=== PATIENT | male | born 1960 | race Caucasian/White ===

== ENCOUNTER 2019-11-10 08:58 | Inpatient (IN) | payer OTHER ==
[~2019-11-10] VITALS: Ht 170.2 cm; Wt 88.0 kg
[2019-11-10 09:50] LABS: BASOPHILS ABSOLUTE AUTO 0.04 K/mm3 (0.00-0.23); BASOPHILS PERCENT AUTO 1 % (0-2); EOSINOPHILS ABSOLUTE AUTO 0.08 K/mm3 (0.00-0.68); EOSINOPHILS PERCENT AUTO 1 % (0-6); Hematocrit 47.1 % (37.0-53.0); Hemoglobin 14.1 g/dL (13.5-17.5); IMMATURE GRAN ABSOLUTE AUTO 0.02 K/mm3 (0.00-0.10); IMMATURE GRAN PERCENT AUTO 0 % (0-1); LYMPHOCYTES ABSOLUTE AUTO 1.15 K/mm3 (0.84-5.20); LYMPHOCYTES PERCENT AUTO 14 % (21-46); MONOCYTES ABSOLUTE AUTO 0.48 K/mm3 (0.16-1.47); MONOCYTES PERCENT AUTO 6 % (4-13); Mean Corpuscular HGB 29.6 pg (26.0-34.0); Mean Corpuscular HGB Conc 29.9 g/dL (31.5-36.5); Mean Corpuscular Volume 99 fL (80-100); Mean Platelet Volume 10.2 fL (9.1-12.4); NEUTROPHILS ABSOLUTE AUTO 6.24 K/mm3 (1.96-9.15); NEUTROPHILS PERCENT AUTO 78 % (41-73); Platelet Count 284 K/mm3 (150-400); RDW Coefficient Variation 15.9 % (11.7-14.2); RDW Standard Deviation 57.7 fL (35.1-46.3); Red Blood Cell Count 4.77 M/mm3 (4.30-5.90); White Blood Cell Count 8.01 K/mm3 (4.00-11.30)
[2019-11-10 09:54] LABS: Base Excess Venous 7.2 mmol/L; Bicarbonate Venous 28.2 mmol/L (24.0-30.0); PCO2 Venous 57.6 mmHg (38-42); PO2 Venous 34.5 mmHg (38-42); pH Blood Venous 7.36 (7.34-7.37)
[2019-11-10 10:14] LABS: Alanine Aminotransfer (ALT/SGP 17 U/L (12-78); Albumin, Blood 2.7 g/dL (3.4-5.0); Albumin/Globulin Ratio 0.6 (0.8-1.8); Alk Phos 113 U/L (50-136); Anion Gap 9 mmol/L (6-16); Aspartate Aminotrans (AST/SGOT 32 U/L (12-37); Bilirubin, Total 0.8 mg/dL (0.1-1.0); Blood Urea Nitrogen 10 mg/dL (8-24); Bun/Creatinine Ratio 16.8 (12.0-20.0); CO2, Blood 25 mmol/L (21-32); Calcium, Blood 8.2 mg/dL (8.5-10.1); Chloride, Blood 105 mmol/L (98-108); Globulin, Blood 4.7 g/dL (2.2-4.0); Glomerular Filtration Rate >60 (60-); Glucose, Blood 282 mg/dL (70-99); Potassium, Blood 4.9 mmol/L (3.5-5.5); Sodium, Blood 139 mmol/L (136-145); Total Protein, Blood 7.4 g/dL (6.4-8.2); Troponin I 0.016 ng/mL (0.000-0.040)
[2019-11-10] MEDS ORDERED: BASAGLAR K100 UNIT/1 SC (12:21)
[2019-11-10] MEDS ORDERED: CARV6.25 PO (12:22)
[2019-11-10] MEDS ORDERED: SITA100T2 PO (12:22)
[2019-11-10] MEDS ORDERED: ST. JOSEPH ASPI81 M1 PO (12:22)
[2019-11-10] MEDS ORDERED: LOSARTAN POTAS100 M1 PO (12:23)
[2019-11-10] MEDS ORDERED: ISOSORBIDE MONO30 MG PO (12:30)
[2019-11-10] MEDS ORDERED: FURO40 PO (12:30)
[2019-11-10] MEDS ORDERED: Metformin HCl1000 MG PO (12:31)
--- NOTE | 2019-11-10 13:50 | NUR ---
echocardiogram completed.
--- NOTE | 2019-11-10 18:10 | NUR ---
NO ACUTE EVENTS THIS SHIFT. VSS, PATIENT ABLE TO AMBULATE INDEPENDENTLY IN ROOM. PLAN IS TO CONTINUE TO DIURESE WITH IV LASIX, PATIENT IS CREATING GOOD AMOUNT OF OUTPUT.
[2019-11-11 03:31] LABS: BASOPHILS ABSOLUTE AUTO 0.06 K/mm3 (0.00-0.23); BASOPHILS PERCENT AUTO 1 % (0-2); EOSINOPHILS PERCENT AUTO 2 % (0-6); Hematocrit 45.2 % (37.0-53.0); Hemoglobin 14.2 g/dL (13.5-17.5); IMMATURE GRAN ABSOLUTE AUTO 0.02 K/mm3 (0.00-0.10); IMMATURE GRAN PERCENT AUTO 0 % (0-1); LYMPHOCYTES ABSOLUTE AUTO 1.69 K/mm3 (0.84-5.20); LYMPHOCYTES PERCENT AUTO 18 % (21-46); MONOCYTES ABSOLUTE AUTO 0.62 K/mm3 (0.16-1.47); MONOCYTES PERCENT AUTO 7 % (4-13); Mean Corpuscular HGB 29.3 pg (26.0-34.0); Mean Corpuscular HGB Conc 31.4 g/dL (31.5-36.5); Mean Platelet Volume 9.8 fL (9.1-12.4); NEUTROPHILS ABSOLUTE AUTO 6.59 K/mm3 (1.96-9.15); NEUTROPHILS PERCENT AUTO 72 % (41-73); Platelet Count 348 K/mm3 (150-400); RDW Coefficient Variation 15.3 % (11.7-14.2); RDW Standard Deviation 52.8 fL (35.1-46.3); Red Blood Cell Count 4.85 M/mm3 (4.30-5.90); White Blood Cell Count 9.18 K/mm3 (4.00-11.30)
[2019-11-11 03:32] LABS: Mean Corpuscular Volume 93 fL (80-100)
[2019-11-11 03:46] LABS: Anion Gap 8 mmol/L (6-16); Blood Urea Nitrogen 14 mg/dL (8-24); Bun/Creatinine Ratio 17.9 (12.0-20.0); CO2, Blood 33 mmol/L (21-32); Calcium, Blood 8.3 mg/dL (8.5-10.1); Chloride, Blood 100 mmol/L (98-108); Creatinine, Blood 0.78 mg/dL (0.60-1.20); Glomerular Filtration Rate >60 (60-); Glucose, Blood 116 mg/dL (70-99); Potassium, Blood 3.1 mmol/L (3.5-5.5); Sodium, Blood 141 mmol/L (136-145)
--- NOTE | 2019-11-11 07:25 | NUR ---
END OF SHIFT SUMMARY PT AXO, VSS, SOME HTN BUT RESOLVED. FOR MAJORITY OF SHIFT, PT RESTED IN ROOM QUIETLY AND WAS CONSTANTLY GETTING UP TO BATHROOM TO VOID INTO URINAL DUE TO BEING DIURESED. 0300, PT STATES FEELING SICK, PRESENTING WITH SOME RESPIRATORY DISTRESS DESPITE SPO2 >94% ON RA. PT C/O NOT BEING ABLE TO CATCH A FULL BREATH. LUNGS HAD STARTED WITH FINE CRACKLES T/O AND PER AUSCULTATION, PRESENTED WITH LESS CRACKLES. RT CALLED AND PROVIDED TREATMENT, PT STILL SYMPTOMATIC. CBG TAKEN, 55. PT BARELY ABLE TO LIFT HEAD OFF OF PILLOW. ORDER RECEIVED FROM DR TORRES FOR 1/2 AMP D5. ADMINISTERED. CBG JOSE GUADALUPE TO 67 AND THEN >100 WITH AM LABS THAT THIS RN ASKED TO TAKE EARLY DUE TO PT PRESENTATION. PT BEING CLOSELY MONITORED BUT STATED FEELING "MUCH BETTER". 0508, CBG RETAKEN AND SHOWED 44. ORDER FOR 1 FULL AMP D5 RECEIVED AND ADMINISTERED. PT STATES FEELING MUCH BETTER. PT STILL BEING CLOSELY MONITORED. SHIFT CHANGE AT 0640, CBG RETAKEN, LOW PER PCT. DR SCHUMACHER CALLED. PT GIVEN ORANGE JUICE. REPORT GIVEN TO ONCNAGI RN. ORDERES RECEIVED FROM DR SCHUMACHER. ONCNAGI RN TO ADMINISTER NEW ORDERS.
--- NOTE | 2019-11-11 10:02 | NUR ---
pt laying in bed awake, but keeps eyes closed, responds approp. a/ox3, a bit slow to answer, lungs are clear in upper [place], crackles, course in bases, resp even and unlabord, is on r/a, no cough noted at this time, hrr, has pacer but not pacing at this time, underlying is st per monitor, see strip, 1+edema noted to b/l le, up to thighs, skin is wrinkling as it's going down, ppp+faint, cap refill <3sec, v.s. stable, afebrile, iv to left fa, near the ac, infusing k rider at this time, pt tolerating well, btx4, abd flat soft nontender, voids via urinal, skin c/w/d, ryan crump, call light in reach.
--- NOTE | 2019-11-11 10:51 | NUR ---
we will be checking glucose q1hr until noon, as he was low this am, and recieved d50 several times. last check was in the 170s. changed his insulin. call light in reach.
--- NOTE | 2019-11-11 19:02 | NUR ---
PT RESTING IN BED THIS EVENING, GETS HIMSELF UP TO THE BR, VOIDED 1800MLS FOR THE DAY. NO COMPLAINTS. CARDIOLOGY WAS IN, RECORDS WERE OBTAINED FROM [facility] IN [facility]. WILL KEEP NPO AFTER MID FOR POSSIBLE ANGIO. GLUCOSE HAS LEVELED OUT, NO FURTHER CHANGES THIS SHIFT. CALL LIGHT IN REACH.
--- NOTE | 2019-11-11 19:30 | NUR ---
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
[2019-11-12 05:02] LABS: BASOPHILS ABSOLUTE AUTO 0.05 K/mm3 (0.00-0.23); BASOPHILS PERCENT AUTO 1 % (0-2); EOSINOPHILS ABSOLUTE AUTO 0.19 K/mm3 (0.00-0.68); EOSINOPHILS PERCENT AUTO 2 % (0-6); Hemoglobin 13.8 g/dL (13.5-17.5); IMMATURE GRAN ABSOLUTE AUTO 0.02 K/mm3 (0.00-0.10); IMMATURE GRAN PERCENT AUTO 0 % (0-1); LYMPHOCYTES ABSOLUTE AUTO 1.27 K/mm3 (0.84-5.20); LYMPHOCYTES PERCENT AUTO 16 % (21-46); MONOCYTES ABSOLUTE AUTO 0.62 K/mm3 (0.16-1.47); MONOCYTES PERCENT AUTO 8 % (4-13); Mean Corpuscular HGB 28.7 pg (26.0-34.0); Mean Corpuscular HGB Conc 31.4 g/dL (31.5-36.5); Mean Corpuscular Volume 92 fL (80-100); Mean Platelet Volume 10.1 fL (9.1-12.4); NEUTROPHILS ABSOLUTE AUTO 5.79 K/mm3 (1.96-9.15); NEUTROPHILS PERCENT AUTO 73 % (41-73); Platelet Count 292 K/mm3 (150-400); RDW Coefficient Variation 15.2 % (11.7-14.2); RDW Standard Deviation 51.3 fL (35.1-46.3); Red Blood Cell Count 4.81 M/mm3 (4.30-5.90); White Blood Cell Count 7.94 K/mm3 (4.00-11.30)
[2019-11-12 05:35] LABS: Albumin, Blood 2.4 g/dL (3.4-5.0); Anion Gap 8 mmol/L (6-16); Blood Urea Nitrogen 17 mg/dL (8-24); Bun/Creatinine Ratio 22.4 (12.0-20.0); CO2, Blood 34 mmol/L (21-32); Calcium, Blood 8.3 mg/dL (8.5-10.1); Chloride, Blood 96 mmol/L (98-108); Creatinine, Blood 0.76 mg/dL (0.60-1.20); Glomerular Filtration Rate >60 (60-); Glucose, Blood 155 mg/dL (70-99); Phosphorus, Blood 4.3 mg/dL (2.5-4.9); Potassium, Blood 3.9 mmol/L (3.5-5.5); Sodium, Blood 138 mmol/L (136-145)
--- NOTE | 2019-11-12 06:28 | NUR ---
SHIFT SUMMARY PT SLEEPING IN ROOM COMFORTABLY AT THIS TIME. NO ACUTE CHAGES IN STATUS T/O NIGHT. PT DENIED ANY CP OR SOB. RESP EVEN UNLABORED ON RA W/ SATS >92%. PT INDEPENDENT IN ROOM TO RR, CALLS APPROPIRATLEY FOR NEEDS. PER ASSESMENT AND PT REPORT EDEMA MUCH IMPROVED IN BLE. DENIED ANY OTHER NEEDS. CALL LIGHT IN REACH.
--- NOTE | 2019-11-12 06:30 | NUR ---
SHIFT SUMMARY PATIENT SLEPT THROUGHOUT THE NIGHT. NO ACUTE CHANGES IN STATUS THROUGHOUT THE NIGHT. VITALS REMAINED STABLE. RESPIRATIONS ARE UNLABORED AND EVEN. NO SOB. NO CHEST PAIN. PATIENT IS INDEPENDENT IN ROOM, CALLS APPROPRIATELY FOR NEEDS. PATIENT REPORTED EDEMA HAS IMPROVED IN BLE. CALL LIGHT WITHIN REACH.
--- NOTE | 2019-11-12 18:02 | NUR ---
SHIFT NOTE PT HAS BEEN RESTING IN BED TO THE DAY, DENIES CP OR SOB T/O THE DAY. PT WAS SCHEDULED TO GO TO [facility] [employer] [facility] TODAY BUT IT HAS BEEN RESCHEDULED FOR TOMORROW. PT WILL BE NPO AFTER MIDNIGHT. VSS. PT SITTING UP AT BEDSIDE EATING DINNER TRAY. A/O X4, ANSWERING QUESTIONS APPROPRIATELY.
[2019-11-13 03:53] LABS: Hematocrit 44.9 % (37.0-53.0); Hemoglobin 14.1 g/dL (13.5-17.5); Mean Corpuscular HGB 28.9 pg (26.0-34.0); Mean Corpuscular HGB Conc 31.4 g/dL (31.5-36.5); Mean Corpuscular Volume 92 fL (80-100); Mean Platelet Volume 9.8 fL (9.1-12.4); Platelet Count 316 K/mm3 (150-400); RDW Coefficient Variation 15.2 % (11.7-14.2); RDW Standard Deviation 51.9 fL (35.1-46.3); Red Blood Cell Count 4.88 M/mm3 (4.30-5.90); White Blood Cell Count 7.17 K/mm3 (4.00-11.30)
[2019-11-13 04:11] LABS: Anion Gap 5 mmol/L (6-16); Blood Urea Nitrogen 17 mg/dL (8-24); Bun/Creatinine Ratio 23.3 (12.0-20.0); CO2, Blood 36 mmol/L (21-32); Calcium, Blood 8.3 mg/dL (8.5-10.1); Chloride, Blood 96 mmol/L (98-108); Creatinine, Blood 0.73 mg/dL (0.60-1.20); Glomerular Filtration Rate >60 (60-); Glucose, Blood 139 mg/dL (70-99); Potassium, Blood 3.8 mmol/L (3.5-5.5); Sodium, Blood 137 mmol/L (136-145)
--- NOTE | 2019-11-13 05:59 | NUR ---
SHIFT SUMMARY PATIENT RECEIVED A ONE TIME DOSE OF 4 UNITS OF INSULIN AT BEDTIME WITH A LOW SLIDING SCALE. NPO AT MIDNIGHT (11/13/19) FOR ANGIO. VITALS REMAINED STABLE. RESPIRATIONS ARE UNLABORED AND EVEN. NO SOB. NO CHEST PAIN. PATIENT IS INDEPENDENT IN ROOM, CALLS APPROPRIATELY FOR NEEDS. PATIENT REPORTED EDEMA HAS IMPROVED IN BLE. CALL LIGHT WITHIN REACH.
[2019-11-13] MEDS ORDERED: ATOR20 PO (17:09)
--- NOTE | 2019-11-13 18:15 | NUR ---
SHIFT NOTE PT HAS DENIES CP AND SOB T/O THE DAY. PT HAS BEEN TO [facility] TODAY, RT BAND IS DEFLATED. PT IS READY FOR D/C WHEN HE HAS BEEN RECOVERED X1 HR. PT IS A/O X4. RESTING WELL IN BED. PT HAS BEEN EATING WELL SINCE RETURNING FROM [facility]. PT STS THAT HE WILL BE RETURNING TO THE [facility] WHERE HE IS STAYING
--- NOTE | 2019-11-13 18:48 | NUR ---
PT TR BAND IS REMOVED, OP SITE PLACE. ARM BAND IS MOVED TO LIMIT ROM. PT IS THOROUGHLY EDUCATED ABOUT POST ANGIO CARE, PT STS "I WILL TRY" PT IS EDUCATED THAT IT IS IMPORTANT THAT HE NOT ONLY "TRY" BUT DOES COMPLY WITH NOT USING HIS ARM WHERE ANGIO WAS PERFORMED. PT EXPRESSED UNDERSTANDING OF MEDICATION CHANGES AND THAT MEDICATIONS WERE CALLED IN. PT EXPRESSED UNDERSTANDING OF WHAT TO DO IF HIS ANGIO SITE BEGINS TO BLEED. PT DENIES FURTHER QUESTIONS OR NEEDS. PT HAS CALLED FOR HIS RIDE
== END 2019-11-13 19:10 | disposition home or self-care (01) | DRG 286 ==
LOC: ER 08:58 → PCU 12:15
PROVIDERS: Internal Medicine; Physician Assistant; ADMIT Family Medicine
PROC: 8E0ZXY6 Isolation (ICD-10-PCS; principal; 2019-11-10)
PROC: 4A023N8 Measurement of Cardiac Sampling and Pressure, Bilateral, Percutaneous Approach (ICD-10-PCS; 2019-11-13)
PROC: B2111ZZ Fluoroscopy of Multiple Coronary Arteries using Low Osmolar Contrast (ICD-10-PCS; 2019-11-13)
PROC: 4A1239Z Monitoring of Cardiac Output, Percutaneous Approach (ICD-10-PCS; 2019-11-13)
DX: I11.0 Hypertensive heart disease with heart failure (principal); I50.21 Acute systolic (congestive) heart failure; Z79.82 Long term (current) use of aspirin; Z79.4 Long term (current) use of insulin; J44.9 Chronic obstructive pulmonary disease, unspecified; Z87.891 Personal history of nicotine dependence; Z20.828 Contact with and (suspected) exposure to other viral communicable diseases; Z95.810 Presence of automatic (implantable) cardiac defibrillator; Z91.14 Patient's other noncompliance with medication regimen; E87.6 Hypokalemia; I34.0 Nonrheumatic mitral (valve) insufficiency; E11.9 Type 2 diabetes mellitus without complications; I25.10 Atherosclerotic heart disease of native coronary artery without angina pectoris; I27.20 Pulmonary hypertension, unspecified
CPT/HCPCS: 36415; 71046; 76937; 80048; 80053; 80069; 82803; 82947; 83036; 83735; 83880; 84484; 85025; 85027; 85347; 93005; 93010; 93282; 93306; 93460; 94640; 94760; 96374-59; 99152; 99153; 99285-25; A9270-GY; C1769; C1894; J1644; J1650; J1815; J1940; J2250; J3010; J3480; J7030; J7799; Q9967